=== PATIENT | female | born 1990 | race Caucasian/White ===

== ENCOUNTER 2018-12-17 05:13 | Inpatient (IN) ==
[2018-12-17] MEDS ORDERED: CITRIC ACID/SODIUM CITRATE 30 ML UDCUP PO ONE (05:25)
[2018-12-17] MEDS ORDERED: ceFAZolin 2,000 MG in PREMIX 1 EACH IV ONE (05:25)
[2018-12-17] MEDS ORDERED: FAMOTIDINE 20 MG/2 ML VIAL IV ONE (05:25)
[2018-12-17] MEDS ORDERED: OXYTOCIN/LR 20 UNIT/1,000 ML BAG IV ONE ×2 (05:36→08:17)
[2018-12-17 05:50] LABS: Basophils % 0.3 % (0.0-0.8); Eosinophils # 0.2 10*3/uL (0.0-0.87); Eosinophils % 1.7 % (0.00-10.9); Hematocrit 38.4 VOL% (35.7-47.0); Hemoglobin 13.3 GM/DL (12.0-16.0); Immature Granulocytes % 0.8 %; Lymphocytes # 2.5 10*3/uL (1.4-4.0); Lymphocytes % 20.7 % (21.3-54.2); Mean Corpuscular HGB Conc 34.6 GM/DL (32-36); Mean Corpuscular Volume 96.5 FL (87-102); Mean Platelet Volume 10.9 FL (9.6-12.0); Monocytes % 6.2 % (1.7-12.7); Neutrophils % 70.3 % (38.7-73.9); Platelet Count 263 T/CUMM (130-400); Red Blood Count 3.98 MC/CUMM (3.8-5.5); Red Cell Distribution Width 12.9 % (9.3-17.3); White Blood Count 12.1 T/CUMM (4-12)
[2018-12-17] MEDS: LACTATED RINGERS 1,000 ML IV SCH ×2 (06:00→19:41)
[2018-12-17 06:12] LABS: Albumin 2.6 G/DL (3.4-5.0); Bilirubin,Total 1.1 MG/DL (0.2-1.0); Calcium 8.7 MG/DL (8.5-10.1); Osmolality,Calculated 270.8 MOS/KG (273-304); Total Protein 6.9 G/DL (6.4-8.3)
[2018-12-17] MEDS ORDERED: LACTATED RINGERS 1,000 ML IV ONE (06:14)
[2018-12-17] MEDS ORDERED: PROMETHAZINE 25 MG/1 ML VIAL IM ONE (06:14)
[2018-12-17] MEDS ORDERED: ONDANSETRON 4 MG/2 ML VIAL IV ONE (06:14)
[2018-12-17] MEDS ORDERED: diphenhydrAMINE 50 MG/1 ML VIAL IV PRN (06:14)
[2018-12-17] MEDS ORDERED: PHENYLEPHRINE 1 MG/10 ML SYRINGE IV ONE (06:53)
[2018-12-17] MEDS ORDERED: MORPHINE 10 MG/10 ML VIAL ONE (06:54)
[2018-12-17] MEDS ORDERED: BUPIVACAINE 0.25% 50 ML VIAL ONE (06:54)
[2018-12-17] MEDS ORDERED: BUPIVACAINE SPINAL 0.75% 2 ML AMP SPINAL ONE (06:55)
[2018-12-17] MEDS ORDERED: DEXAMETHASONE 4 MG/1 ML VIAL ONE (06:55)
[2018-12-17] MEDS ORDERED: EPINEPHrine 1 MG/ML VIAL ONE (06:55)
[2018-12-17] MEDS ORDERED: miSOPROStoL 200 MCG TABLET ONE (07:04)
[2018-12-17] MEDS ORDERED: METHYLERGONOVINE 0.2 MG/1 ML AMP ONE (07:05)
[2018-12-17] MEDS ORDERED: WITCH HAZEL PADS 100/JAR TOP PRN (08:17)
[2018-12-17] MEDS ORDERED: LANOLIN 50% CREAM 0.3 OZ TUBE TOP PRN (08:17)
[2018-12-17] MEDS ORDERED: ACETAMINOPHEN 325 MG TABLET PO PRN (08:17)
[2018-12-17] MEDS ORDERED: oxyCODONE/ACETAMINOPHEN 5-325 MG TABLET PO PRN (08:17)
[2018-12-17] MEDS ORDERED: BENZOCAINE 20%/MENTHOL 0.5% SPRAY 56 GM CAN TOP PRN (08:17)
[2018-12-17] MEDS ORDERED: BISACODYL 10 MG SUPP RECTAL PRN (08:17)
[2018-12-17] MEDS ORDERED: MEASLES/MUMPS/RUBELLA VACCINE 0.5 ML VIAL SUBCUT ONE (08:17)
[2018-12-17] MEDS ORDERED: RHO(D) IMMUNE GLOBULIN 300 MCG SYRINGE IM ONE (08:17)
[2018-12-17] MEDS ORDERED: ONDANSETRON 4 MG/2 ML VIAL IV PRN (08:17)
[2018-12-17] MEDS ORDERED: DIPH/TET/ACEL PERT BOOSTER VACCINE 0.5 ML VIAL IM ONE (08:17)
[2018-12-17] MEDS ORDERED: HYDROCORTISONE 2.5% RECTAL CREAM 30 GM TUBE TOP PRN (08:17)
[2018-12-17 08:33] LABS: Apearance,Urine CLEAR (Clear); Bilirubin,Urine Negative (Negative); Blood, Urine Negative (Negative); Glucose,Urine (UA) Negative (Negative); Ketones,Urine Negative (Negative); Mucus,Urine Occasional /LPF (Occasional); Nitrite,Urine Negative (Negative); Protein,Urine Negative; Squamous Epithelial Cell,Urine Occasional /HPF (0-10); Urine Color Straw (Yellow); Urine Specific Gravity 1.008 (1.001-1.035); Urine Urobilinogen < 2.0 EU/DL (0.2-1.0)
[2018-12-17] MEDS ORDERED: MIDAZOLAM 2 MG/2 ML VIAL ONE (08:48)
[2018-12-17] MEDS: ACETAMINOPHEN 500 MG TABLET PO SCH ×3 (10:14→22:09)
[2018-12-17] MEDS: KETOROLAC 30 MG/1 ML VIAL IV SCH ×3 (10:16→22:11)
[2018-12-17] MEDS: DOCUSATE SODIUM 100 MG CAPSULE PO SCH ×2 (11:45→22:17)
[2018-12-17] MEDS ORDERED: SODIUM CHLORIDE 0.9% 50 ML IV ONE (15:12)
[2018-12-17] MEDS: ceFAZolin 1,000 MG in SYRINGE 1 EACH IV SCH (15:29)
[2018-12-18] MEDS: ceFAZolin 1,000 MG in SYRINGE 1 EACH IV SCH (00:19)
[2018-12-18] MEDS: ACETAMINOPHEN 500 MG TABLET PO SCH (04:20)
[2018-12-18] MEDS: KETOROLAC 30 MG/1 ML VIAL IV SCH (04:21)
[2018-12-18 06:55] LABS: Basophils % 0.3 % (0.0-0.8); Eosinophils # 0.1 10*3/uL (0.0-0.87); Eosinophils % 0.7 % (0.00-10.9); Immature Granulocytes % 0.6 %; Immature Granulocytes Absolute 0.08 #; Lymphocytes # 2.7 10*3/uL (1.4-4.0); Mean Corpuscular HGB Conc 33.3 GM/DL (32-36); Mean Corpuscular Volume 97.9 FL (87-102); Mean Platelet Volume 10.3 FL (9.6-12.0); Monocytes % 6.2 % (1.7-12.7); Neutrophils % 72.2 % (38.7-73.9); Red Blood Count 3.37 MC/CUMM (3.8-5.5); Red Cell Distribution Width 13.2 % (9.3-17.3); White Blood Count 13.3 T/CUMM (4-12)
[2018-12-18 06:56] LABS: Platelet Count 195 T/CUMM (130-400)
[2018-12-18] MEDS: DOCUSATE SODIUM 100 MG CAPSULE PO SCH ×2 (09:05→21:14)
[2018-12-18] MEDS: oxyCODONE/ACETAMINOPHEN 5-325 MG TABLET PO PRN ×2 (15:28→21:15)
[2018-12-18] MEDS: IBUPROFEN 800 MG TABLET PO PRN ×2 (15:28→21:15)
[2018-12-18] MEDS: MAGNESIUM HYDROXIDE SUSP 30 ML UDCUP PO PRN (21:14)
[2018-12-19] MEDS: IBUPROFEN 800 MG TABLET PO PRN (04:31)
[2018-12-19] MEDS: oxyCODONE/ACETAMINOPHEN 5-325 MG TABLET PO PRN (04:32)
[2018-12-19 07:25] VITALS: BP 154/78
[2018-12-19] MEDS: MAGNESIUM HYDROXIDE SUSP 30 ML UDCUP PO PRN (09:20)
[2018-12-19] MEDS: DOCUSATE SODIUM 100 MG CAPSULE PO SCH (09:20)
== END 2018-12-19 11:40 | disposition home or self-care (01) | DRG 540 ==
LOC: N.LDOUT 05:13 → N.LD 05:15 → N.OB 11:48
PROVIDERS: ADMIT Specialist; ATTEND Specialist
PROC: LDCSECT (ICD-10-PCS; 2018-12-17 07:30)

== ENCOUNTER 2020-06-30 05:22 | Inpatient (IN) ==
[2020-06-30] MEDS ORDERED: LACTATED RINGERS 500 ML IV PRN (05:38)
[2020-06-30] MEDS ORDERED: ONDANSETRON 4 MG/2 ML VIAL IV PRN ×2 (05:38→11:56)
[2020-06-30] MEDS: LACTATED RINGERS 1,000 ML IV SCH ×3 (06:16→21:35)
[2020-06-30 06:23] LABS: Basophils % 0.2 % (0.0-0.8); Eosinophils # 0.2 10*3/uL (0.0-0.87); Eosinophils % 1.4 % (0.00-10.9); Hematocrit 35.9 VOL% (35.7-47.0); Hemoglobin 12.1 GM/DL (12.0-16.0); Immature Granulocytes % 1.3 %; Immature Granulocytes Absolute 0.15 #; Lymphocytes # 2.1 10*3/uL (1.4-4.0); Lymphocytes % 18.9 % (21.3-54.2); Mean Corpuscular HGB Conc 33.7 GM/DL (32-36); Mean Platelet Volume 10.4 FL (9.6-12.0); Monocytes % 5.6 % (1.7-12.7); Neutrophils % 72.6 % (38.7-73.9); Platelet Count 240 T/CUMM (130-400); Red Blood Count 3.59 MC/CUMM (3.8-5.5); Red Cell Distribution Width 13.6 % (9.3-17.3); White Blood Count 11.3 T/CUMM (4-12)
[2020-06-30 06:47] LABS: Alanine Aminotransferase 16 U/L (13-56); Albumin 2.3 G/DL (3.4-5.0); Alkaline Phosphatase 217 U/L (45-117); Aspartate Amino Transferase 9 U/L (0-37); Bilirubin,Total < 0.39 MG/DL (0.2-1.0); Blood Urea Nitrogen 10 MG/DL (7-18); Calcium 8.6 MG/DL (8.5-10.1); Carbon Dioxide 22 MMOL/L (21-32); Estimated Glom Filtration Rate 158 ML/MIN; Glucose 91 MG/DL (74-106); Osmolality,Calculated 271.8 MOS/KG (273-304); Potassium 3.8 MMOL/L (3.5-5.1); Sodium 137 MMOL/L (136-145); Total Protein 6.6 G/DL (6.4-8.2)
[2020-06-30] MEDS ORDERED: CITRIC ACID/SODIUM CITRATE 30 ML UDCUP PO ONE (07:53)
[2020-06-30] MEDS ORDERED: FAMOTIDINE 20 MG/2 ML VIAL IV ONE (07:53)
[2020-06-30] MEDS ORDERED: LACTATED RINGERS 1,000 ML IV ONE ×2 (07:53→10:54)
[2020-06-30] MEDS ORDERED: ceFAZolin 2,000 MG/50 ML DUPLEX IV ONE (07:54)
[2020-06-30] MEDS ORDERED: OXYTOCIN/LR 20 UNIT/1,000 ML BAG IV ONE ×2 (07:55→11:56)
[2020-06-30] MEDS ORDERED: METHYLERGONOVINE 0.2 MG/1 ML AMP ONE (09:01)
[2020-06-30] MEDS ORDERED: CARBOPROST TROMETHAMINE 250 MCG/ML AMP IM ONE (09:01)
[2020-06-30] MEDS ORDERED: miSOPROStoL 200 MCG TABLET ONE (09:01)
[2020-06-30] MEDS ORDERED: ePHEDrine 50 MG/ML VIAL ONE (10:24)
[2020-06-30] MEDS ORDERED: ACETAMINOPHEN INJ 1,000 MG/100 ML VIAL IV ONE (10:54)
[2020-06-30] MEDS ORDERED: PHENYLEPHRINE 10 MG/1 ML VIAL IV ONE (10:54)
[2020-06-30] MEDS ORDERED: ONDANSETRON 4 MG/2 ML VIAL ONE (10:54)
[2020-06-30 11:01] LABS: Cord Arterial Blood HCO3 29.7 MMOL/L
[2020-06-30 11:04] LABS: Cord Venous Blood PO2 31.1 MMHG
[2020-06-30] MEDS ORDERED: BUPIVACAINE SPINAL 0.75% 2 ML AMP SPINAL ONE (11:06)
[2020-06-30 11:07] LABS: Bilirubin,Urine Negative (Negative); Blood, Urine Negative (Negative); Glucose,Urine (UA) Negative (Negative); Ketones,Urine Negative (Negative); Mucus,Urine Occasional /LPF (Occasional); Nitrite,Urine Negative (Negative); Protein,Urine Negative; RBC,Urine 1 /HPF (0-4); Urine Appearance CLEAR (Clear); Urine Color Straw (Yellow); Urine Specific Gravity 1.008 (1.001-1.035); Urine Urobilinogen < 2.0 EU/DL (0.2-1.0)
[2020-06-30] MEDS ORDERED: ACETAMINOPHEN 325 MG TABLET PO PRN (11:56)
[2020-06-30] MEDS ORDERED: HYDROCORTISONE 2.5% RECTAL CREAM 30 GM TUBE TOP PRN (11:56)
[2020-06-30] MEDS ORDERED: DIPH/TET/ACEL PERT BOOSTER VACCINE 0.5 ML VIAL IM ONE (11:56)
[2020-06-30] MEDS ORDERED: RHO(D) IMMUNE GLOBULIN 300 MCG SYRINGE IM ONE (11:56)
[2020-06-30] MEDS ORDERED: BISACODYL 10 MG SUPP RECTAL PRN (11:56)
[2020-06-30] MEDS ORDERED: oxyCODONE/ACETAMINOPHEN 5-325 MG TABLET PO PRN (11:56)
[2020-06-30] MEDS ORDERED: BENZOCAINE 20%/MENTHOL 0.5% SPRAY 56 GM CAN TOP PRN (11:56)
[2020-06-30] MEDS ORDERED: WITCH HAZEL PADS 100/JAR TOP PRN (11:56)
[2020-06-30] MEDS ORDERED: MEASLES/MUMPS/RUBELLA VACCINE 0.5 ML VIAL SUBCUT ONE (11:56)
[2020-06-30] MEDS ORDERED: LANOLIN 50% CREAM 0.3 OZ TUBE TOP PRN (11:56)
[2020-06-30] MEDS: KETOROLAC 30 MG/1 ML VIAL IV SCH (19:53)
[2020-06-30] MEDS: DOCUSATE SODIUM 100 MG CAPSULE PO SCH (21:43)
[2020-06-30] MEDS: oxyCODONE/ACETAMINOPHEN 5-325 MG TABLET PO PRN (23:15)
[2020-07-01] MEDS: KETOROLAC 30 MG/1 ML VIAL IV SCH ×3 (01:32→07:01)
[2020-07-01] MEDS: oxyCODONE/ACETAMINOPHEN 5-325 MG TABLET PO PRN ×3 (06:16→18:50)
[2020-07-01 07:16] LABS: Basophils % 0.2 % (0.0-0.8); Eosinophils # 0.1 10*3/uL (0.0-0.87); Eosinophils % 1.3 % (0.00-10.9); Hematocrit 28.4 VOL% (35.7-47.0); Immature Granulocytes % 0.7 %; Immature Granulocytes Absolute 0.07 #; Lymphocytes # 1.6 10*3/uL (1.4-4.0); Lymphocytes % 16.4 % (21.3-54.2); Mean Corpuscular HGB Conc 33.5 GM/DL (32-36); Mean Platelet Volume 11.1 FL (9.6-12.0); Monocytes % 4.8 % (1.7-12.7); Neutrophils % 76.6 % (38.7-73.9); Red Cell Distribution Width 13.6 % (9.3-17.3); White Blood Count 9.7 T/CUMM (4-12)
[2020-07-01 07:17] LABS: Hemoglobin 9.5 GM/DL (12.0-16.0); Platelet Count 181 T/CUMM (130-400); Red Blood Count 2.84 MC/CUMM (3.8-5.5)
[2020-07-01] MEDS ORDERED: SIMETHICONE CHEW 80 MG TABLET PO PRN (09:00)
[2020-07-01] MEDS: DOCUSATE SODIUM 100 MG CAPSULE PO SCH ×2 (10:18→22:17)
[2020-07-01] MEDS: MAGNESIUM HYDROXIDE SUSP 30 ML UDCUP PO PRN ×2 (10:18→22:17)
[2020-07-01] MEDS: IBUPROFEN 800 MG TABLET PO PRN ×2 (10:20→22:42)
[2020-07-02] MEDS: oxyCODONE/ACETAMINOPHEN 5-325 MG TABLET PO PRN ×2 (00:27→09:43)
[2020-07-02 08:38] VITALS: BP 123/73
[2020-07-02] MEDS: DOCUSATE SODIUM 100 MG CAPSULE PO SCH (09:43)
== END 2020-07-02 11:20 | disposition home or self-care (01) | DRG 540 ==
LOC: N.LD 05:22 → N.OB 15:12
PROVIDERS: ADMIT Specialist; ATTEND Specialist